=== PATIENT | male | born 1960 | race Caucasian/White ===

== ENCOUNTER 2023-08-20 18:17 | Observation (INO) | payer OTHER ==
[~2023-08-20 18:17] MED LIST: Iopamidol-370 76% 500 ML MDV (1 ML CHARGE) ONE
[2023-08-20] MEDS ORDERED: Morphine 4 MG/ML VIAL ONE ×2 (20:26→23:32)
[2023-08-20 20:58] LABS: #Basophils 0.04 10x3/uL (0.0-0.2); %Basophils 0.5 % (0.0-1.0); %Eosinophils 4.3 % (0.0-10.0); %Lymphocytes 13.5 % (21.0-51.0); %Monocytes 6.4 % (0.0-10.0); %Neutrophils 75.2 % (42.0-75.0); Hematocrit 40.2 % (42.0-52.0); Hemoglobin 13.2 g/dL (14.0-18.0); Mean Corpuscular HGB CONC 32.8 g/dL (32.0-36.0); Mean Corpuscular Hemoglobin 30.2 pg (27.0-31.0); Mean Platelet Volume 9.9 fL (7.4-10.4); Platelet Count 205 10x3/uL (130-400); Red Blood Cell (RBC) Count 4.37 mill/uL (4.70-6.10)
[2023-08-20 21:17] LABS: ALT (SGPT) 11 U/L (8-55); AST (SGOT) 16 U/L (5-34); Albumin 3.7 g/dL (3.4-4.8); Alkaline Phosphatase 49 U/L (40-110); Anion Gap 11 mmol/L (10-20); BUN (Urea Nitrogen) 20 mg/dL (8.4-25.7); Bilirubin, Total 0.4 mg/dL (0.2-1.2); Calc. Creatinine Clearance 0 mL/min (70-130); Calcium 8.9 mg/dL (7.8-10.44); Carbon Dioxide 22 mmol/L (23-31); Chloride 110 mmol/L (98-107); Estimated GFR 103; Globulin 3.3 g/dL (2.4-3.5); Glucose 106 mg/dL (80-115); Potassium 3.9 mmol/L (3.5-5.1); Sodium 139 mmol/L (136-145)
[2023-08-20 21:23] LABS: Troponin I Less than 0.010 ng/mL (< 0.028)
[2023-08-21] MEDS ORDERED: Nitroglycerin 0.4 MG TAB (25 Tab Bottle) SL PRN (00:36)
[2023-08-21] MEDS ORDERED: Acetaminophen 650 MG Suppository PR PRN (00:38)
[2023-08-21] MEDS ORDERED: Ondansetron ODT 4 MG TAB PO PRN (00:38)
[2023-08-21] MEDS ORDERED: Acetaminophen 325 MG TAB PO PRN (00:38)
[2023-08-21] MEDS ORDERED: Ondansetron PF 4 MG/2 ML Vial IVP PRN (00:38)
[2023-08-21 00:54] LABS: Troponin I Less than 0.010 ng/mL (< 0.028)
[2023-08-21 01:12] VITALS: BMI 36.1
[2023-08-21] MEDS: Ranolazine ER 500 MG TAB PO SCH (03:21)
[2023-08-21 04:48] LABS: Anion Gap 13 mmol/L (10-20); BUN (Urea Nitrogen) 18 mg/dL (8.4-25.7); Calc. Creatinine Clearance 144 mL/min (70-130); Calcium 8.9 mg/dL (7.8-10.44); Carbon Dioxide 19 mmol/L (23-31); Chloride 109 mmol/L (98-107); Estimated GFR 102; Glucose 111 mg/dL (80-115); Potassium 3.5 mmol/L (3.5-5.1); Sodium 137 mmol/L (136-145)
[2023-08-21 04:53] LABS: Troponin I Less than 0.010 ng/mL (< 0.028)
[2023-08-21 04:55] LABS: Hemoglobin A1c 5.8 % (4.0-6.0)
[2023-08-21 05:55] LABS: #Basophils 0.06 10x3/uL (0.0-0.2); %Basophils 0.8 % (0.0-1.0); %Eosinophils 6.2 % (0.0-10.0); %Lymphocytes 17.6 % (21.0-51.0); %Neutrophils 67.3 % (42.0-75.0); Hemoglobin 13.3 g/dL (14.0-18.0); Mean Corpuscular HGB CONC 32.4 g/dL (32.0-36.0); Mean Corpuscular Hemoglobin 30.6 pg (27.0-31.0); Mean Corpuscular Volume 94.3 fL (78.0-98.0); Mean Platelet Volume 10.7 fL (7.4-10.4); Platelet Count 190 10x3/uL (130-400); RBC Distribution Width 13.2 % (11.5-14.5); Red Blood Cell (RBC) Count 4.35 mill/uL (4.70-6.10)
[2023-08-21] MEDS: Famotidine 20 MG TAB PO SCH (10:09)
[2023-08-21] MEDS: Lisinopril 20 MG TAB PO SCH (10:09)
[2023-08-21] MEDS: metFORMIN 500 MG TAB PO SCH (10:09)
[2023-08-21] MEDS: Hydrochlorothiazide 25 MG TAB PO SCH (10:10)
[2023-08-21] MEDS: Clopidogrel Bisulfate 75 MG TAB PO SCH (10:10)
[2023-08-21] MEDS: Famotidine/PF 20 mg/2ml Vial SLOW IVP SCH (10:12)
[2023-08-21 11:59] VITALS: BMI 36.1
[2023-08-21] MEDS: traMADol HCl 50 MG TAB PO PRN (12:47)
[2023-08-21] MEDS: Aspirin 81 mg Enteric Coated Tablet PO SCH (13:40)
[2023-08-21] MEDS: Morphine 2 MG/ML VIAL SLOW IVP PRN (15:06)
[2023-08-21] MEDS: Atorvastatin Calcium 40 MG TAB PO SCH (20:04)
[2023-08-21] MEDS: Milk Of Magnesia 30 ML UDCUP PO SCH (20:05)
[2023-08-22 05:13] LABS: Anion Gap 12 mmol/L (10-20); BUN (Urea Nitrogen) 21 mg/dL (8.4-25.7); Calc. Creatinine Clearance 142 mL/min (70-130); Calcium 9.2 mg/dL (7.8-10.44); Carbon Dioxide 23 mmol/L (23-31); Chloride 109 mmol/L (98-107); Estimated GFR 101; Glucose 101 mg/dL (80-115); Potassium 3.9 mmol/L (3.5-5.1); Sodium 140 mmol/L (136-145)
[2023-08-22] MEDS ORDERED: Regadenoson 0.4 MG/5 ML SYRINGE ONE (09:19)
[2023-08-22 12:01] VITALS: BP 118/67; TEMP 97.8
== END 2023-08-22 18:34 ==
LOC: EEVIPCON 18:17 → ERS 18:17 → 2SW 23:11
PROVIDERS: ADMIT Student in an Organized Health Care Education/Training Program; ATTEND Internal Medicine Critical Care Medicine
DX: R07.9 Chest pain, unspecified (principal); Z95.1 Presence of aortocoronary bypass graft; Z79.02 Long term (current) use of antithrombotics/antiplatelets; Z79.899 Other long term (current) drug therapy; Z88.6 Allergy status to analgesic agent; Z88.8 Allergy status to other drugs, medicaments and biological substances
CPT/HCPCS: 36415; 36416; 71045; 71275; 74174; 78452; 80048; 80053; 83036; 84484; 85025; 93005; 93017; 94760; 96376; A9502; G0378; J2270; J2272; J2785; Q9967